=== PATIENT | male | born 1970 | race Caucasian/White ===

== ENCOUNTER 2022-04-08 15:51 | Emergency (ER) | payer OTHER | END 2022-04-08 19:50 | disposition home or self-care (01) | LOC: JP.ED 15:51 | DX: S80.11XA Contusion of right lower leg, initial encounter (principal); Z86.16 Personal history of COVID-19; V49.50XA Passenger injured in collision with unspecified motor vehicles in traffic accident, initial encounter; Y92.410 Unspecified street and highway as the place of occurrence of the external cause | CPT/HCPCS: 71250; 73590-26-RT; 73590-RT; 73700-RT; 74176; 99284 ==